=== PATIENT | female | born 1940 | race Caucasian/White ===

== ENCOUNTER 2017-08-10 14:12 | Inpatient (IN) | payer MEDICARE ==
[~2017-08-10] VITALS: Ht 162.6 cm; Wt 72.7 kg
[~2017-08-10 14:12] MED LIST: ATOR40TA PO; HYDR25TA4 PO
[2017-08-10] MEDS ORDERED: pantoprazole 40 MG vial IV ONE (14:20)
[2017-08-10] MEDS ORDERED: ondansetron/PF 4mg/2ml inj IV ONE (14:20)
[2017-08-10] MEDS ORDERED: normal saline 1000ML IV soln IVB ONE (14:20)
[2017-08-10 15:03] LABS: BASOPHILS % (AUTO) 0.3 % (0-1); EOSINOPHILS # (AUTO) 0.3 X10'3 (0-0.9); EOSINOPHILS % (AUTO) 2.5 % (0-6); HEMATOCRIT 40.6 % (35.0-45.0); HEMOGLOBIN 13.8 g/dl (12.0-16.0); LYMPHOCYTES # (AUTO) 1.2 X10'3 (1.1-4.8); LYMPHOCYTES % (AUTO) 10.9 % (21-51); MEAN CORPUSCULAR HEMOGLOBIN 30.3 PG (27.0-31.0); MEAN CORPUSCULAR HGB CONC 34.1 % (33.0-36.5); MEAN PLATELET VOLUME 8.1 FL (7.4-10.4); MONOCYTES % (AUTO) 9.8 % (2-12); NEUTROPHILS # (AUTO) 8.1 X10'3 (1.8-7.7); NEUTROPHILS % (AUTO) 76.5 % (42-75); PLATELET COUNT 154 X10'3 (140-440); RED BLOOD COUNT 4.56 X10'6 (4.20-5.60); RED CELL DISTRIBUTION WIDTH 12.6 % (11.5-14.5); WHITE BLOOD COUNT 10.6 X10'3 (4.5-11.0)
[2017-08-10 15:36] LABS: ALANINE AMINOTRANSFERASE 39 U/L (12-78); ALBUMIN 3.8 G/DL (3.4-5.0); ALBUMIN/GLOBULIN RATIO 1.3 (1.1-1.5); ALKALINE PHOSPHATASE 68 IU/L (46-116); ANION GAP 10 (8-16); ASPARTATE AMINO TRANSFERASE 26 U/L (10-37); BILIRUBIN,TOTAL 0.6 MG/DL (0.1-1.0); BLOOD UREA NITROGEN 37 MG/DL (7-18); BUN/CREATININE RATIO 29.6 (6.6-38.0); CHLORIDE 103 MMOL/L (99-107); CREATININE 1.25 MG/DL (0.40-0.90); GLUCOSE 147 MG/DL (70-104); LIPASE 107 U/L (73-393); POTASSIUM 3.7 MMOL/L (3.5-5.1); SODIUM 141 MMOL/L (135-145); TOTAL CARBON DIOXIDE 28.2 MMOL/L (24-32); TOTAL PROTEIN 6.8 G/DL (6.4-8.2); eGFR 42 ML/MIN
[2017-08-10 16:59] LABS: CLARITY,URINE CLEAR (Clear); COLOR,URINE YELLOW (Yellow); GLUCOSE, URINE NEGATIVE (Neg); KETONES,URINE NEGATIVE (Neg); LEUKOCYTE ESTERASE ,URINE NEGATIVE (Neg); NITRITES, URINE NEGATIVE (Neg); OCCULT BLOOD,URINE TRACE-LYSED (Neg); PROTEIN,URINE NEGATIVE (Neg); UA COLLECTION TYPE CLN CATCH MIDSTREAM; UROBILINOGEN,URINE 0.2 E.U/dL (0.2-1.0)
[2017-08-10 17:08] LABS: BACTERIA,URINE FEW /HPF (Neg); RBC,URINE NONE SEEN /HPF (0-2); SQUAMOUS EPITHELIAL CELL,UR MODERATE /LPF (FEW); WBC,URINE 0-4 /HPF (0-4)
[2017-08-10] MEDS ORDERED: ondansetron/PF 4mg/2ml inj IV PRN (18:35)
[2017-08-10] MEDS ORDERED: magnesium 2GM in 50ml NS 50 ML IV PRN (18:35)
[2017-08-10] MEDS ORDERED: magnesium hydroxide 30ml (MOM) UD suspension PO PRN (18:35)
[2017-08-10] MEDS ORDERED: bisacodyl 10mg suppository rectal RC PRN (18:35)
[2017-08-10] MEDS ORDERED: magnesium Cl slow-release 64mg tablet PO PRN (18:35)
[2017-08-10] MEDS ORDERED: magnesium 4gm in 100ml NS 100 ML IV PRN (18:35)
[2017-08-10] MEDS ORDERED: potassium Cl 20 mEq SR tablet PO PRN ×2 (18:35)
[2017-08-10] MEDS ORDERED: acetaminophen 325mg tablet PO PRN (18:35)
[2017-08-10] MEDS ORDERED: mag hydrox/Alum hydrox/simeth 30ml oral suspension PO PRN (18:35)
[2017-08-10] MEDS ORDERED: potassium Cl 40MEQ/NS 500ml 500 ML IV PRN ×2 (18:35)
[2017-08-10] MEDS: pantoprazole 40 MG vial IV SCH (19:42)
[2017-08-10] MEDS: potassium cl 20mEq in 1/2 NS 1,000 ML IV SCH (19:45)
[2017-08-10] MEDS: docusate sod 100mg capsule PO SCH (19:49)
[2017-08-10 21:30] VITALS: BP 167/63
[2017-08-10] MEDS: atorvastatin 20mg tablet PO SCH (22:28)
[2017-08-10 23:00] VITALS: BP 171/71
[2017-08-11] VITALS (7 sets, daily range): BP systolic 138–176; BP diastolic 56–81
[2017-08-11 03:04] LABS: BASOPHILS % (AUTO) 0 % (0-1); EOSINOPHILS # (AUTO) 0.3 X10'3 (0-0.9); EOSINOPHILS % (AUTO) 1.9 % (0-6); HEMATOCRIT 39.1 % (35.0-45.0); HEMOGLOBIN 13.1 g/dl (12.0-16.0); LYMPHOCYTES % (AUTO) 5.3 % (21-51); MEAN CORPUSCULAR HEMOGLOBIN 29.9 PG (27.0-31.0); MEAN CORPUSCULAR HGB CONC 33.5 % (33.0-36.5); MEAN CORPUSCULAR VOLUME 89.1 FL (78-98); MEAN PLATELET VOLUME 8.4 FL (7.4-10.4); MONOCYTES # (AUTO) 1.3 X10'3 (0-0.9); MONOCYTES % (AUTO) 7.3 % (2-12); NEUTROPHILS # (AUTO) 15.6 X10'3 (1.8-7.7); NEUTROPHILS % (AUTO) 85.5 % (42-75); PLATELET COUNT 145 X10'3 (140-440); RED BLOOD COUNT 4.39 X10'6 (4.20-5.60); RED CELL DISTRIBUTION WIDTH 12.5 % (11.5-14.5); WHITE BLOOD COUNT 18.2 X10'3 (4.5-11.0)
[2017-08-11 03:21] LABS: ALBUMIN 3.4 G/DL (3.4-5.0); ANION GAP 13 (8-16); BLOOD UREA NITROGEN 29 MG/DL (7-18); BUN/CREATININE RATIO 27.9 (6.6-38.0); CALCIUM 8.1 MG/DL (8.5-10.1); CHLORIDE 105 MMOL/L (99-107); CREATININE 1.04 MG/DL (0.40-0.90); GLUCOSE 147 MG/DL (70-104); POTASSIUM 3.9 MMOL/L (3.5-5.1); SODIUM 141 MMOL/L (135-145); TOTAL CARBON DIOXIDE 23.3 MMOL/L (24-32); eGFR 51 ML/MIN
[2017-08-11] MEDS: potassium cl 20mEq in 1/2 NS 1,000 ML IV SCH ×2 (04:59→15:39)
[2017-08-11] MEDS ORDERED: insulin Lispro (HumaLOG) vial - multi-dose SQ SCH (07:10)
[2017-08-11] MEDS ORDERED: dextrose ORAL solution 15 GM/59 ML bottle PO PRN ×2 (07:10)
[2017-08-11] MEDS ORDERED: dextrose 50%-water 50ml dispensing syringe IV PRN ×2 (07:10)
[2017-08-11] MEDS ORDERED: MESSAGE TO PHARMACY PO ONE (07:10)
[2017-08-11] MEDS ORDERED: glucagon, human recombinant 1mg kit SUBCUT PRN (07:10)
[2017-08-11] MEDS: K and/or MAG REPLACEMENT MC SCH (08:00)
[2017-08-11] MEDS: docusate sod 100mg capsule PO SCH ×2 (08:13→20:00)
[2017-08-11] MEDS: pantoprazole 40 MG vial IV SCH (08:13)
[2017-08-11 10:09] LABS: BASOPHILS # (AUTO) 0.1 X10'3 (0-0.2); BASOPHILS % (AUTO) 0.3 % (0-1); EOSINOPHILS % (AUTO) 0 % (0-6); HEMATOCRIT 38.5 % (35.0-45.0); HEMOGLOBIN 13.4 g/dl (12.0-16.0); LYMPHOCYTES # (AUTO) 0.9 X10'3 (1.1-4.8); LYMPHOCYTES % (AUTO) 4.1 % (21-51); MEAN CORPUSCULAR HEMOGLOBIN 29.9 PG (27.0-31.0); MEAN CORPUSCULAR HGB CONC 34.7 % (33.0-36.5); MEAN CORPUSCULAR VOLUME 86.4 FL (78-98); MEAN PLATELET VOLUME 8.9 FL (7.4-10.4); MONOCYTES # (AUTO) 1.5 X10'3 (0-0.9); MONOCYTES % (AUTO) 7.2 % (2-12); NEUTROPHILS % (AUTO) 88.4 % (42-75); PLATELET COUNT 157 X10'3 (140-440); RED BLOOD COUNT 4.46 X10'6 (4.20-5.60); RED CELL DISTRIBUTION WIDTH 11.7 % (11.5-14.5); WHITE BLOOD COUNT 21.5 X10'3 (4.5-11.0)
[2017-08-11] MEDS: levoFLOXACIN-Levaquin 500mg/D5 100 ML IV SCH (16:50)
[2017-08-11] MEDS ORDERED: ALEN70TA13 PO (17:32)
[2017-08-11] MEDS ORDERED: LISI10TA4 PO (17:32)
[2017-08-11] MEDS: atorvastatin 20mg tablet PO SCH (20:38)
[2017-08-11] MEDS: diatr meglu/diatrizoate 30ml oral sol.-(3 dose) bottle PO SCH (20:38)
[2017-08-11] MEDS: insulin glargine (Lantus) pen - multi-dose SQ SCH (21:00)
[2017-08-11 21:07] LABS: CLARITY,URINE CLEAR (Clear); COLOR,URINE YELLOW (Yellow); GLUCOSE, URINE NEGATIVE (Neg); KETONES,URINE NEGATIVE (Neg); LEUKOCYTE ESTERASE ,URINE NEGATIVE (Neg); NITRITES, URINE NEGATIVE (Neg); OCCULT BLOOD,URINE TRACE-INTACT (Neg); PH,URINE 6.5 (4.8-8.0); PROTEIN,URINE NEGATIVE (Neg); UROBILINOGEN,URINE 0.2 E.U/dL (0.2-1.0)
[2017-08-11 21:10] LABS: UA COLLECTION TYPE CLN CATCH MIDSTREAM
[2017-08-11 21:23] LABS: SQUAMOUS EPITHELIAL CELL,UR FEW /LPF (FEW)
[2017-08-11 21:25] LABS: BACTERIA,URINE FEW /HPF (Neg); RBC,URINE NONE SEEN /HPF (0-2); WBC,URINE 0-4 /HPF (0-4)
[2017-08-12] VITALS (13 sets, daily range): BP systolic 87–183; BP diastolic 48–83
[2017-08-12] MEDS: potassium cl 20mEq in 1/2 NS 1,000 ML IV SCH ×2 (00:32→16:48)
[2017-08-12 06:05] LABS: BASOPHILS % (AUTO) 0 % (0-1); EOSINOPHILS # (AUTO) 0.4 X10'3 (0-0.9); EOSINOPHILS % (AUTO) 1.7 % (0-6); HEMATOCRIT 37.9 % (35.0-45.0); HEMOGLOBIN 12.9 g/dl (12.0-16.0); LYMPHOCYTES # (AUTO) 0.9 X10'3 (1.1-4.8); LYMPHOCYTES % (AUTO) 3.7 % (21-51); MEAN CORPUSCULAR HEMOGLOBIN 30.4 PG (27.0-31.0); MEAN CORPUSCULAR HGB CONC 34.1 % (33.0-36.5); MEAN PLATELET VOLUME 8.8 FL (7.4-10.4); MONOCYTES % (AUTO) 8.1 % (2-12); NEUTROPHILS # (AUTO) 21.3 X10'3 (1.8-7.7); NEUTROPHILS % (AUTO) 86.5 % (42-75); PLATELET COUNT 139 X10'3 (140-440); RED BLOOD COUNT 4.26 X10'6 (4.20-5.60); RED CELL DISTRIBUTION WIDTH 12.3 % (11.5-14.5); WHITE BLOOD COUNT 24.6 X10'3 (4.5-11.0)
[2017-08-12 06:18] LABS: ANION GAP 8 (8-16); BLOOD UREA NITROGEN 16 MG/DL (7-18); CALCIUM 8.1 MG/DL (8.5-10.1); CHLORIDE 107 MMOL/L (99-107); CREATININE 0.84 MG/DL (0.40-0.90); GLUCOSE 114 MG/DL (70-104); POTASSIUM 4.1 MMOL/L (3.5-5.1); SODIUM 140 MMOL/L (135-145); TOTAL CARBON DIOXIDE 25.5 MMOL/L (24-32); eGFR 66 ML/MIN
[2017-08-12] MEDS: levoFLOXACIN-Levaquin 500mg/D5 100 ML IV SCH (07:21)
[2017-08-12] MEDS: pantoprazole 40 MG vial IV SCH (07:21)
[2017-08-12] MEDS: diatr meglu/diatrizoate 30ml oral sol.-(3 dose) bottle PO SCH ×2 (07:21→09:22)
[2017-08-12] MEDS: docusate sod 100mg capsule PO SCH ×2 (07:25→21:13)
[2017-08-12] MEDS: K and/or MAG REPLACEMENT MC SCH (08:00)
[2017-08-12] MEDS: metroNIDAZOLE-Flagyl 500mg/NS 100 ML IV SCH (16:48)
[2017-08-12] MEDS: lactobacillus rhamnosus 10,000 MMU CELLS/CAPSULE PO SCH (16:48)
[2017-08-12] MEDS: insulin glargine (Lantus) pen - multi-dose SQ SCH (21:00)
[2017-08-12] MEDS: atorvastatin 20mg tablet PO SCH (21:12)
[2017-08-13] MEDS: metroNIDAZOLE-Flagyl 500mg/NS 100 ML IV SCH ×4 (00:08→23:20)
[2017-08-13 02:00] VITALS: BP 170/79
[2017-08-13 06:00] VITALS: BP 124/73
[2017-08-13 06:36] LABS: BASOPHILS % (AUTO) 0 % (0-1); EOSINOPHILS % (AUTO) 0 % (0-6); HEMOGLOBIN 12.3 g/dl (12.0-16.0); LYMPHOCYTES # (AUTO) 1.6 X10'3 (1.1-4.8); MEAN CORPUSCULAR HGB CONC 34.2 % (33.0-36.5); MEAN CORPUSCULAR VOLUME 87.9 FL (78-98); MONOCYTES # (AUTO) 1.9 X10'3 (0-0.9); MONOCYTES % (AUTO) 8.2 % (2-12); NEUTROPHILS % (AUTO) 84.8 % (42-75); PLATELET COUNT 137 X10'3 (140-440); RED BLOOD COUNT 4.09 X10'6 (4.20-5.60); RED CELL DISTRIBUTION WIDTH 12.4 % (11.5-14.5); WHITE BLOOD COUNT 23.6 X10'3 (4.5-11.0)
[2017-08-13 06:38] LABS: ALBUMIN 2.6 G/DL (3.4-5.0); ANION GAP 9 (8-16); BLOOD UREA NITROGEN 22 MG/DL (7-18); BUN/CREATININE RATIO 27.5 (6.6-38.0); CALCIUM 7.9 MG/DL (8.5-10.1); CHLORIDE 108 MMOL/L (99-107); GLUCOSE 95 MG/DL (70-104); MAGNESIUM 2.2 MG/DL (1.5-2.4); SODIUM 141 MMOL/L (135-145); eGFR 70 ML/MIN
[2017-08-13 07:36] LABS: PLATELET ESTIMATE DECREASED; TOTAL CELLS COUNTED 100
[2017-08-13 07:37] LABS: TOXIC GRANULATION 1+
[2017-08-13] MEDS: docusate sod 100mg capsule PO SCH ×2 (08:00→19:56)
[2017-08-13] MEDS: K and/or MAG REPLACEMENT MC SCH (08:00)
[2017-08-13] MEDS: lisinopril 10 MG tablet PO SCH (08:24)
[2017-08-13] MEDS: pantoprazole 40 MG vial IV SCH (08:28)
[2017-08-13] MEDS: lactobacillus rhamnosus 10,000 MMU CELLS/CAPSULE PO SCH ×2 (08:28→17:37)
[2017-08-13] MEDS: levoFLOXACIN-Levaquin 500mg/D5 100 ML IV SCH (08:50)
[2017-08-13 10:31] LABS: HEMATOCRIT 35.8 % (35.0-45.0); MEAN CORPUSCULAR HEMOGLOBIN 29.9 PG (27.0-31.0); MEAN CORPUSCULAR HGB CONC 33.4 % (33.0-36.5); MEAN CORPUSCULAR VOLUME 89.4 FL (78-98); MEAN PLATELET VOLUME 8.9 FL (7.4-10.4); PLATELET COUNT 137 X10'3 (140-440); RED BLOOD COUNT 4.01 X10'6 (4.20-5.60); RED CELL DISTRIBUTION WIDTH 12.3 % (11.5-14.5); WHITE BLOOD COUNT 20.1 X10'3 (4.5-11.0)
[2017-08-13 11:00] VITALS: BP 160/65
[2017-08-13 14:52] LABS: HEMATOCRIT 35.9 % (35.0-45.0); HEMOGLOBIN 12.3 g/dl (12.0-16.0); MEAN CORPUSCULAR HGB CONC 34.2 % (33.0-36.5); MEAN CORPUSCULAR VOLUME 87.7 FL (78-98); MEAN PLATELET VOLUME 8.1 FL (7.4-10.4); PLATELET COUNT 136 X10'3 (140-440); RED BLOOD COUNT 4.09 X10'6 (4.20-5.60); RED CELL DISTRIBUTION WIDTH 12.3 % (11.5-14.5); WHITE BLOOD COUNT 19.1 X10'3 (4.5-11.0)
[2017-08-13 15:00] VITALS: BP 146/65
[2017-08-13] MEDS: potassium cl 20mEq in 1/2 NS 1,000 ML IV SCH (17:38)
[2017-08-13 20:00] VITALS: BP 145/60
[2017-08-13] MEDS ORDERED: PEG 3350/Na sulf,bicarb,Cl/KCl oral sol 4 liter bottle PO ONE (20:00)
[2017-08-13] MEDS: atorvastatin 20mg tablet PO SCH (20:53)
[2017-08-13] MEDS: insulin glargine (Lantus) pen - multi-dose SQ SCH (20:57)
[2017-08-13 21:06] LABS: OCCULT BLOOD STOOL POSITIVE (Neg)
[2017-08-14] VITALS (10 sets, daily range): BP systolic 99–157; BP diastolic 61–77
[2017-08-14 01:34] LABS: BASOPHILS % (AUTO) 0.1 % (0-1); EOSINOPHILS % (AUTO) 0.2 % (0-6); HEMATOCRIT 38.3 % (35.0-45.0); HEMOGLOBIN 12.9 g/dl (12.0-16.0); LYMPHOCYTES # (AUTO) 1.1 X10'3 (1.1-4.8); LYMPHOCYTES % (AUTO) 5.6 % (21-51); MEAN CORPUSCULAR HEMOGLOBIN 29.1 PG (27.0-31.0); MEAN CORPUSCULAR HGB CONC 33.6 % (33.0-36.5); MEAN CORPUSCULAR VOLUME 86.8 FL (78-98); MEAN PLATELET VOLUME 9.1 FL (7.4-10.4); MONOCYTES # (AUTO) 1.2 X10'3 (0-0.9); MONOCYTES % (AUTO) 6.3 % (2-12); NEUTROPHILS # (AUTO) 16.5 X10'3 (1.8-7.7); NEUTROPHILS % (AUTO) 87.8 % (42-75); PLATELET COUNT 162 X10'3 (140-440); RED BLOOD COUNT 4.42 X10'6 (4.20-5.60); RED CELL DISTRIBUTION WIDTH 11.6 % (11.5-14.5); WHITE BLOOD COUNT 18.8 X10'3 (4.5-11.0)
[2017-08-14 01:40] LABS: ALBUMIN 3.1 G/DL (3.4-5.0); ANION GAP 10 (8-16); BLOOD UREA NITROGEN 23 MG/DL (7-18); BUN/CREATININE RATIO 26.1 (6.6-38.0); CALCIUM 7.8 MG/DL (8.5-10.1); CHLORIDE 105 MMOL/L (99-107); CREATININE 0.88 MG/DL (0.40-0.90); GLUCOSE 94 MG/DL (70-104); MAGNESIUM 2.2 MG/DL (1.5-2.4); POTASSIUM 3.8 MMOL/L (3.5-5.1); SODIUM 139 MMOL/L (135-145); TOTAL CARBON DIOXIDE 23.9 MMOL/L (24-32); eGFR 62 ML/MIN
[2017-08-14] MEDS: metroNIDAZOLE-Flagyl 500mg/NS 100 ML IV SCH ×2 (07:48→16:59)
[2017-08-14] MEDS: lisinopril 10 MG tablet PO SCH (07:48)
[2017-08-14] MEDS: lactobacillus rhamnosus 10,000 MMU CELLS/CAPSULE PO SCH ×2 (07:48→17:06)
[2017-08-14] MEDS: pantoprazole 40 MG vial IV SCH (07:48)
[2017-08-14] MEDS: levoFLOXACIN-Levaquin 500mg/D5 100 ML IV SCH (07:48)
[2017-08-14] MEDS: docusate sod 100mg capsule PO SCH ×2 (07:49→21:02)
[2017-08-14] MEDS: K and/or MAG REPLACEMENT MC SCH (07:49)
[2017-08-14] MEDS: potassium cl 20mEq in 1/2 NS 1,000 ML IV SCH (10:44)
[2017-08-14] MEDS ORDERED: MIDAZolam 5mg/ml 2ml vial ONE (13:15)
[2017-08-14] MEDS ORDERED: fentaNYL/PF 50MCG/1 ML 2ML syringe ONE (13:15)
[2017-08-14] MEDS ORDERED: normal saline 1000ml 1,000 ML IV SCH (20:23)
[2017-08-14] MEDS ORDERED: MIDAZolam 5mg/ml 2ml vial IV PRN (20:25)
[2017-08-14] MEDS ORDERED: fentaNYL/PF 50MCG/1 ML 2ML syringe IV PRN (20:25)
[2017-08-14] MEDS: insulin glargine (Lantus) pen - multi-dose SQ SCH (21:00)
[2017-08-14] MEDS: atorvastatin 20mg tablet PO SCH (21:02)
[2017-08-15] MEDS: metroNIDAZOLE-Flagyl 500mg/NS 100 ML IV SCH ×3 (01:37→16:31)
[2017-08-15 02:00] VITALS: BP 158/68
[2017-08-15] MEDS: potassium cl 20mEq in 1/2 NS 1,000 ML IV SCH ×2 (03:24→20:04)
[2017-08-15 06:00] VITALS: BP 155/76
[2017-08-15 06:26] LABS: BASOPHILS % (AUTO) 0.2 % (0-1); EOSINOPHILS # (AUTO) 0.3 X10'3 (0-0.9); EOSINOPHILS % (AUTO) 2.4 % (0-6); HEMATOCRIT 37.8 % (35.0-45.0); HEMOGLOBIN 12.9 g/dl (12.0-16.0); LYMPHOCYTES # (AUTO) 1.1 X10'3 (1.1-4.8); LYMPHOCYTES % (AUTO) 9.4 % (21-51); MEAN CORPUSCULAR HEMOGLOBIN 30.2 PG (27.0-31.0); MEAN CORPUSCULAR HGB CONC 34.2 % (33.0-36.5); MEAN CORPUSCULAR VOLUME 88.5 FL (78-98); MEAN PLATELET VOLUME 8.8 FL (7.4-10.4); MONOCYTES # (AUTO) 1.1 X10'3 (0-0.9); MONOCYTES % (AUTO) 9.4 % (2-12); NEUTROPHILS # (AUTO) 9.3 X10'3 (1.8-7.7); NEUTROPHILS % (AUTO) 78.6 % (42-75); PLATELET COUNT 172 X10'3 (140-440); RED BLOOD COUNT 4.27 X10'6 (4.20-5.60); RED CELL DISTRIBUTION WIDTH 12.1 % (11.5-14.5); WHITE BLOOD COUNT 11.9 X10'3 (4.5-11.0)
[2017-08-15 06:56] LABS: ALBUMIN 3.1 G/DL (3.4-5.0); ANION GAP 9 (8-16); BLOOD UREA NITROGEN 12 MG/DL (7-18); CALCIUM 8.4 MG/DL (8.5-10.1); CHLORIDE 108 MMOL/L (99-107); CREATININE 0.86 MG/DL (0.40-0.90); GLUCOSE 90 MG/DL (70-104); MAGNESIUM 2.1 MG/DL (1.5-2.4); POTASSIUM 3.8 MMOL/L (3.5-5.1); SODIUM 142 MMOL/L (135-145); eGFR 64 ML/MIN
[2017-08-15] MEDS: lisinopril 10 MG tablet PO SCH (07:53)
[2017-08-15] MEDS: pantoprazole 40 MG vial IV SCH (07:54)
[2017-08-15] MEDS: levoFLOXACIN-Levaquin 500mg/D5 100 ML IV SCH (07:54)
[2017-08-15] MEDS: lactobacillus rhamnosus 10,000 MMU CELLS/CAPSULE PO SCH ×2 (07:54→17:34)
[2017-08-15] MEDS: docusate sod 100mg capsule PO SCH ×2 (07:55→20:00)
[2017-08-15] MEDS: K and/or MAG REPLACEMENT MC SCH (07:55)
[2017-08-15 11:00] VITALS: BP 155/70
[2017-08-15 15:00] VITALS: BP 140/64
[2017-08-15] MEDS ORDERED: HYDROcodone/acetaminophen 5mg/325mg tablet PO PRN (17:10)
[2017-08-15 18:00] VITALS: BP 157/72
[2017-08-15] MEDS: insulin glargine (Lantus) pen - multi-dose SQ SCH (21:00)
[2017-08-15 22:00] VITALS: BP 153/61
[2017-08-15] MEDS: atorvastatin 20mg tablet PO SCH (22:21)
[2017-08-16] MEDS: metroNIDAZOLE-Flagyl 500mg/NS 100 ML IV SCH ×2 (00:24→07:54)
[2017-08-16 00:45] VITALS: BP 174/60
[2017-08-16 02:00] VITALS: BP 141/57
[2017-08-16 05:58] LABS: BASOPHILS % (AUTO) 0.3 % (0-1); EOSINOPHILS # (AUTO) 0.2 X10'3 (0-0.9); EOSINOPHILS % (AUTO) 2.3 % (0-6); HEMATOCRIT 31.4 % (35.0-45.0); HEMOGLOBIN 10.6 g/dl (12.0-16.0); LYMPHOCYTES # (AUTO) 1.7 X10'3 (1.1-4.8); LYMPHOCYTES % (AUTO) 18.6 % (21-51); MEAN CORPUSCULAR HEMOGLOBIN 29.7 PG (27.0-31.0); MEAN CORPUSCULAR HGB CONC 33.9 % (33.0-36.5); MEAN CORPUSCULAR VOLUME 87.5 FL (78-98); MEAN PLATELET VOLUME 7.8 FL (7.4-10.4); MONOCYTES # (AUTO) 1.3 X10'3 (0-0.9); MONOCYTES % (AUTO) 14.2 % (2-12); NEUTROPHILS % (AUTO) 64.6 % (42-75); PLATELET COUNT 158 X10'3 (140-440); RED BLOOD COUNT 3.59 X10'6 (4.20-5.60); RED CELL DISTRIBUTION WIDTH 12.4 % (11.5-14.5); WHITE BLOOD COUNT 9.2 X10'3 (4.5-11.0)
[2017-08-16 06:00] VITALS: BP 134/66
[2017-08-16 06:22] LABS: ALANINE AMINOTRANSFERASE 27 U/L (12-78); ALBUMIN 2.3 G/DL (3.4-5.0); ALBUMIN/GLOBULIN RATIO 0.8 (1.1-1.5); ALKALINE PHOSPHATASE 41 IU/L (46-116); ANION GAP 9 (8-16); ASPARTATE AMINO TRANSFERASE 19 U/L (10-37); BILIRUBIN,TOTAL 0.5 MG/DL (0.1-1.0); BLOOD UREA NITROGEN 11 MG/DL (7-18); BUN/CREATININE RATIO 14.1 (6.6-38.0); CALCIUM 7.6 MG/DL (8.5-10.1); CHLORIDE 111 MMOL/L (99-107); CREATININE 0.78 MG/DL (0.40-0.90); GLUCOSE 103 MG/DL (70-104); MAGNESIUM 1.9 MG/DL (1.5-2.4); PHOSPHORUS 2.5 MG/DL (2.3-4.5); POTASSIUM 3.5 MMOL/L (3.5-5.1); SODIUM 144 MMOL/L (135-145); TOTAL CARBON DIOXIDE 24.1 MMOL/L (24-32); TOTAL PROTEIN 5.1 G/DL (6.4-8.2); eGFR 72 ML/MIN
[2017-08-16] MEDS: pantoprazole 40 MG vial IV SCH (07:50)
[2017-08-16] MEDS: K and/or MAG REPLACEMENT MC SCH (07:50)
[2017-08-16] MEDS: lisinopril 10 MG tablet PO SCH (07:50)
[2017-08-16] MEDS: docusate sod 100mg capsule PO SCH (07:53)
[2017-08-16] MEDS: levoFLOXACIN-Levaquin 500mg/D5 100 ML IV SCH (07:55)
[2017-08-16] MEDS: lactobacillus rhamnosus 10,000 MMU CELLS/CAPSULE PO SCH (07:57)
[2017-08-16] MEDS ORDERED: METR500T4 PO (10:23)
[2017-08-16] MEDS ORDERED: LEVO500T2 PO (10:23)
[2017-08-16 11:00] VITALS: BP 140/63
[2017-08-16] MEDS: potassium cl 20mEq in 1/2 NS 1,000 ML IV SCH (12:44)
[2017-08-16] MEDS ORDERED: metroNIDAZOLE 500mg tablet PO SCH (16:00)
== END 2017-08-16 14:10 | disposition home health service (06) | DRG 393 ==
LOC: ER 14:13 → ED HOLD 18:32 → PCU 3S 22:14
PROVIDERS: ADMIT Internal Medicine; ATTEND Family Medicine
PROC: 0DBL8ZX Excision of Transverse Colon, Via Natural or Artificial Opening Endoscopic, Diagnostic (ICD-10-PCS; principal; 2017-08-14)
DX: K55.039 Acute (reversible) ischemia of large intestine, extent unspecified (principal); N17.0 Acute kidney failure with tubular necrosis; K57.91 Diverticulosis of intestine, part unspecified, without perforation or abscess with bleeding; K63.3 Ulcer of intestine; I95.1 Orthostatic hypotension; G93.89 Other specified disorders of brain; E78.5 Hyperlipidemia, unspecified; K52.9 Noninfective gastroenteritis and colitis, unspecified; K63.89 Other specified diseases of intestine; E11.9 Type 2 diabetes mellitus without complications; E86.0 Dehydration; F03.90 Unspecified dementia, unspecified severity, without behavioral disturbance, psychotic disturbance, mood disturbance, and anxiety; I10 Essential (primary) hypertension; Z88.2 Allergy status to sulfonamides; Z79.899 Other long term (current) drug therapy; Z79.01 Long term (current) use of anticoagulants; Z79.4 Long term (current) use of insulin
CPT/HCPCS: 36415; 45380; 70450; 71045; 74176; 80048; 80053; 81001; 82272; 82948; 83036; 83605; 83690; 83735; 84100; 84145; 84484; 85025; 85027; 85610; 87040; 87070; 93005; 93306; 93880; 96361; 96374; 96375; 97110; 97116; 97161; 97530; 99285; A4620; A6446; C9113; G0500; J1815; J1956; J2250; J2405; J3010; J3490; J7030; Q9963

== ENCOUNTER 2017-10-28 12:29 | Outpatient (CLI) | payer MEDICARE ==
[~2017-10-28 12:29] MED LIST changes: +ALEN70TA13 PO; +LISI10TA4 PO
== END 2017-10-28 23:59 | disposition home or self-care (01) ==
LOC: VAS 12:29
PROVIDERS: ATTEND Family Medicine
DX: R60.0 Localized edema (principal); E11.9 Type 2 diabetes mellitus without complications; I82.492 Acute embolism and thrombosis of other specified deep vein of left lower extremity; I82.432 Acute embolism and thrombosis of left popliteal vein; Z79.01 Long term (current) use of anticoagulants
CPT/HCPCS: 93970

== ENCOUNTER 2018-04-01 12:57 | Emergency (ER) | payer MEDICARE ==
[~2018-04-01] VITALS: Ht 162.6 cm; Wt 70.3 kg
[2018-04-01 15:23] VITALS: BP 133/72
== END 2018-04-01 15:27 | disposition home or self-care (01) ==
LOC: ER 12:58
DX: S02.2XXA Fracture of nasal bones, initial encounter for closed fracture (principal); I10 Essential (primary) hypertension; E11.9 Type 2 diabetes mellitus without complications; Z88.2 Allergy status to sulfonamides; Z79.899 Other long term (current) drug therapy; W01.198A Fall on same level from slipping, tripping and stumbling with subsequent striking against other object, initial encounter; Y93.89 Activity, other specified; Y92.89 Other specified places as the place of occurrence of the external cause; Y99.8 Other external cause status
CPT/HCPCS: 70450; 70486; 99284

== ENCOUNTER 2018-07-14 10:30 | Outpatient (CLI) | payer MEDICARE | END 2018-07-14 23:59 | disposition home or self-care (01) | LOC: VAS 10:30 | PROVIDERS: ATTEND Family Medicine | DX: I82.532 Chronic embolism and thrombosis of left popliteal vein (principal); I82.542 Chronic embolism and thrombosis of left tibial vein; E11.9 Type 2 diabetes mellitus without complications | CPT/HCPCS: 93970 ==

== ENCOUNTER 2020-01-08 12:48 | Outpatient (CLI) | payer MEDICARE | END 2020-01-08 23:59 | disposition home or self-care (01) | LOC: VAS 12:48 | PROVIDERS: ATTEND Physician Assistant | DX: M17.12 Unilateral primary osteoarthritis, left knee (principal); M25.462 Effusion, left knee; M16.12 Unilateral primary osteoarthritis, left hip; M47.819 Spondylosis without myelopathy or radiculopathy, site unspecified; M71.22 Synovial cyst of popliteal space [Baker], left knee; Z86.718 Personal history of other venous thrombosis and embolism | CPT/HCPCS: 73502; 73564; 93971 ==

== ENCOUNTER 2020-05-11 14:09 | Outpatient (CLI) | payer MEDICARE ==
[~2020-05-11 14:09] MED LIST changes: -ALEN70TA13 PO; +ALEN70TA80 PO
[2020-05-11 14:18] LABS: CLARITY,URINE CLOUDY (Clear); COLOR,URINE YELLOW (Yellow); GLUCOSE, URINE NEGATIVE (Neg); KETONES,URINE TRACE mg/dl (Neg); LEUKOCYTE ESTERASE ,URINE MODERATE (Neg); NITRITES, URINE POSITIVE (Neg); OCCULT BLOOD,URINE NEGATIVE (Neg); PROTEIN,URINE NEGATIVE (Neg); UROBILINOGEN,URINE 0.2 E.U/dL (0.2-1.0)
[2020-05-11 14:27] LABS: UA COLLECTION TYPE NON-SPECIFIED
[2020-05-11 14:28] LABS: BACTERIA,URINE 4+ /HPF (Neg); HYALINE CASTS 0-3 /LPF (NEGATIVE); MUCUS STRANDS FEW /LPF (Neg); RBC,URINE NONE SEEN /HPF (0-2); SQUAMOUS EPITHELIAL CELL,UR NONE SEEN /LPF (FEW); WBC,URINE 50-100 /HPF (0-4)
== END 2020-05-11 23:59 | disposition home or self-care (01) ==
LOC: LAB SPEC 14:09
PROVIDERS: ATTEND Family Medicine
DX: N39.0 Urinary tract infection, site not specified (principal)
CPT/HCPCS: 81001; 87077; 87088; 87186